=== PATIENT | female | born 1945 | race Caucasian/White ===

== ENCOUNTER 2018-09-23 15:45 | Inpatient (IN) | payer MEDICARE, OTHER ==
[2018-09-23 16:14] LABS: #Basophils 0.1 thou/uL (0.0-0.2); #Eosinphils 0.2 thou/uL (0.0-0.7); #Lymphocytes 2.8 thou/uL (1.20-3.40); #Monocytes 0.8 thou/uL (0.11-0.59); #Neutrophils 5.6 thou/uL (1.40-6.50); %Basophils 1.3 % (0.0-1.0); %Eosinophils 1.6 % (0.0-10.0); %Monocytes 8.3 % (0.0-10.0); %Neutrophils 58.8 % (42.0-75.0); Hemoglobin 15.1 g/dL (12.0-16.0); Mean Corpuscular HGB CONC 32.9 g/dL (32.0-36.0); Mean Corpuscular Hemoglobin 30.5 pg (27.0-31.0); Mean Corpuscular Volume 92.7 fL (78.0-98.0); Mean Platelet Volume 6.5 fL (7.4-10.4); Platelet Count 329 thou/uL (130-400); RBC Distribution Width 12.7 % (11.5-14.5); Red Blood Cell (RBC) Count 4.95 mill/uL (4.20-5.40); White Blood Cell (WBC) Count 9.5 thou/uL (4.8-10.8)
[2018-09-23 16:29] LABS: ALT (SGPT) 25 U/L (8-55); AST (SGOT) 26 U/L (5-34); Albumin 4.8 g/dL (3.4-4.8); Alkaline Phosphatase 66 U/L (40-150); Anion Gap 18 mmol/L (10-20); BUN (Urea Nitrogen) 23 mg/dL (9.8-20.1); Bilirubin, Total 0.3 mg/dL (0.2-1.2); CK (CPK) 56 U/L (29-168); Calc. Creatinine Clearance 0 mL/min (70-130); Calcium 10.5 mg/dL (7.8-10.44); Carbon Dioxide 18 mmol/L (23-31); Chloride 108 mmol/L (98-107); Estimated GFR-MDRD 30; Glucose 86 mg/dL (80-115); Lipase 64 U/L (8-78); Potassium 4.4 mmol/L (3.5-5.1); Protein, Total 7.8 g/dL (6.0-8.3); Sodium 140 mmol/L (136-145)
[2018-09-23] MEDS ORDERED: Iopamidol 370 76% 100 ML VIAL ONE (16:59)
--- NOTE | 2018-09-23 17:19 | CT ---
CT abdomen and pelvis: 09/23/2018 COMPARISON: None HISTORY: Right lower quadrant pain and diarrhea TECHNIQUE: Axial CT imaging at 5 mm intervals from lung bases through pubic symphysis with IV contras t. Coronal reformatted imaging obtained. FINDINGS: Evaluation of the bowel is limited without oral contrast media. Questionable tiny nodule no saran on axial image 1 within right lower lobe measuring 7 mm and within lingula measuring 7 mm. Follow-up contrast enhanced CT examination of the chest advised. No free intraperitoneal air. There is mild nonspecific intrahepatic biliary dilatation bilaterally. Gallbladder wall is mildly pro minent, significance/etiology uncertain. No focal liver lesion is seen. Splenic granulomata are present. Pancreas and bilateral adrenal glands are unremarkable. There are small hypodensities within both kidneys, too small to characterize. There is a small mid po le left renal cyst. There is extensive diverticulosis of the descending colon and sigmoid colon with no evidence for dive rticulitis. The appendix is unremarkable. There are decompressed distal small bowel loops. Proximal to this are multiple dilated fluid-filled l oops of small bowel within the lower abdomen and pelvis measuring up to 3 cm in transverse dimension. Findings are consistent with small bowel obstruction. There is extensive atherosclerotic calcification of the abdominal aorta and its branches. There is a low-density lesion in the left hemipelvis on axial image 65 measuring 2.9 cm, with Hounsfi eld units suggesting a cyst within the left ovary/adnexa. There is a mass within the pelvic cul-de-sac measuring 7.6 cm in greatest dimension, abutting the posterior aspect of the uterus. Its H ounsfield units are 44, which may represent a solid pelvic mass or a complex cystic pelvic mass lesion. This could represent exophytic fibroid or ovarian/adnexal mass. Adnexal/ovarian mass favored, suspicious for possible malignancy. No retroperitoneal or pelvic lymphadenopathy is seen. The osseous structures of the abdomen and pelvis demonstrate no worrisome lytic or blastic bone lesio ns. There is degenerative change involving the lower lumbar spine and bilateral hips. IMPRESSION: Evidence of small bowel obstruction Tiny bibasilar pulmonary nodules for which follow-up CT advised. Mild intrahepatic biliary dilatation of uncertain etiology. Correlation with LFTs advised. Low-density lesions within the pelvis, including a 7.6 cm lesion within the right aspect of the pelvi c cul-de-sac suspicious for ovarian/adnexal malignancy. TR[employer] UNION OFFICIAL consultation suggested. Diverticulosis without evidence for diverticulitis. CODE T
[2018-09-23 18:26] LABS: Bilirubin Negative (Negative); Blood, Urine Negative (Negative); Clarity Clear (Clear); Glucose, Urine (Dipstick) Negative (Negative); Leukocyte Small (Negative); Nitrite Negative (Negative); Protein, Urine (Dipstick) Negative (Neg-Trace); Urobilinogen 0.2 mg/dL (0.2-1.0)
[2018-09-23 18:31] LABS: RBC/HPF None Seen HPF (0-3)
[2018-09-23 18:32] LABS: Bacteria/HPF 1+ HPF (None Seen)
[2018-09-23 19:45] LABS: Lactic Acid 1.3 mmol/L (0.5-2.2)
[2018-09-23] MEDS ORDERED: Ondansetron ODT 4 MG TAB SL PRN (20:45)
[2018-09-23] MEDS ORDERED: Ondansetron PF 4 MG/2 ML Vial IVP PRN (20:45)
[2018-09-23] MEDS ORDERED: Sodium Chloride 0.9% 1,000 ML IV SCH (20:45)
[2018-09-23] MEDS ORDERED: HumaLOG 300 UNITS/3 ML VIAL SC PRN ×2 (20:59→21:11)
[2018-09-23 21:03] VITALS: BMI 24.7
[2018-09-23] MEDS ORDERED: Dextrose 50% Abboject 50 ML SYRINGE IVP PRN (21:11)
[2018-09-23] MEDS ORDERED: Dextrose 5% in Water 1,000 ML IV PRN (21:11)
[2018-09-24] MEDS ORDERED: Sodium Chloride 0.9% 1,000 ML IV SCH (01:00)
--- NOTE | 2018-09-24 01:08 | HP ---
PRIMARY CARE PHYSICIAN: Bj Herzog MD. HISTORY OF PRESENT ILLNESS: This is a 72-year-old female patient, with a history of type 2 diabetes, hypertension, hyperlipidemia, hypothyroidism, and anxiety, presented to the emergency department with complaints of lightheadedness and low blood pressure and almost passing out. The patient states that she has had several weeks of on and off diarrhea which could be severe at times. She was uncertain of the etiology, but it continued to go on and off and some days was good and some days was very bad, the last episode of diarrhea was 2 days ago. This afternoon she felt like she was in her usual state of health when she developed lightheadedness and dizziness. She stated that she almost passed out when she would stand up. Her partner brought her to the emergency department due to her symptoms and low blood pressure. In the emergency department, she was found to be significantly hypotensive with a blood pressure initially 88/44. In the Emergency Department, they resuscitated her with IV fluids 3 L given in bolus nature. In the emergency department, her blood pressure came up over 100 systolic. Her lightheadedness improved at that time and she was feeling much better. Upon evaluation, due to her abdominal pain and diarrhea. CAT scan was done which revealed abnormalities including a pelvic mass, diverticulosis, and abnormal gallbladder as well as dilated small bowel loops consistent with a small-bowel obstruction. She is now being admitted for further evaluation and treatment. PAST MEDICAL HISTORY: Hypertension, hyperlipidemia, type 2 diabetes, hypothyroidism, and anxiety. She reports a history of ovarian cyst in the past, but was told that it was not to worry about and she does not recall any further workup on that ovarian mass in the past. 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 MEDICATIONS: Include; 1. Crestor 40 mg daily. 2. Losartan 100 mg daily. 3. Metformin 850 mg b.i.d. 4. Nifedipine 90 mg daily. 5. Synthroid 125 mcg daily. 6. Fluoxetine 40 mg daily. ALLERGIES: NO KNOWN DRUG ALLERGIES. PSYCHIATRIC HISTORY: Positive for anxiety. SOCIAL HISTORY: She is single. She has a male partner at home, but not . Former smoker, quit over 25 years ago. Positive for regular alcohol use, wine and martinis. No history of alcoholism. FAMILY HISTORY: Both parents with heart disease. Brother with history of colon cancer. She reports a normal colonoscopy on her last one. REVIEW OF SYSTEMS: CONSTITUTIONAL: As per the history of present illness, she denies any recent fevers, chills, or recent illness. HEENT: No headache, visual or hearing changes. No upper respiratory symptoms. CARDIAC: Denies chest pain, shortness of breath, or palpitations. PULMONARY: Denies cough or hemoptysis. GI: As per the history of present illness with diarrhea, minimal abdominal pain. No nausea and vomiting. States that her appetite has been good except for when she has bouts of diarrhea. No melena or hematochezia. : Denies dysuria or hematuria. 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 No history of abnormal Pap smears. NEUROLOGIC: No seizure or syncope, just her lightheadedness this afternoon. PHYSICAL EXAMINATION: VITAL SIGNS: Temperature 97.7, pulse of 62, respirations 20, blood pressure 103/48, pulse ox is 97% on room air. GENERAL: She is awake and alert. She is pleasant, in no acute distress. HEENT: Mucosa is moist. NECK: Supple. No JVD, adenopathy, or bruits. HEART: Regular rate and rhythm. LUNGS: Clear bilaterally. ABDOMEN: With positive bowel sounds. Rare high-pitched tinkling. Positive for right lower quadrant tenderness, but no rebound or guarding. No peritoneal signs. EXTREMITIES: No clubbing, cyanosis, or edema. 2+ peripheral pulses bilaterally. LABORATORY DATA: Sodium 140, potassium 4.4, chloride 108, CO2 of 18, BUN and creatinine are 23 and 1.67 with a GFR of 30. Serum glucose of 86, lactic acid was initially 2.5 and then repeat was 1.3, calcium of 10.5. Liver enzymes are normal. Alkaline phosphatase normal at 66. Troponin was negative. BNP was normal at 18. Lipase 64. White blood cell count 9500, hemoglobin and hematocrit 15.1 and 45.9, and platelets of 329. Urinalysis with positive for epithelial cells. IMAGING STUDIES: Abdominal and pelvic CT revealed evidence of small bowel obstruction, small bibasilar pulmonary nodules, mild intrahepatic biliary dilatation, low-density lesions in the pelvis including a 7.6 cm lesion in the right aspect of the pelvic cul-de-sac, suspicious positive for diverticulosis. ASSESSMENT AND PLAN: This is a 72-year-old female patient, with multiple medical problems including type 2 diabetes, hypertension, hyperlipidemia, hypothyroidism, now with subacute diarrhea, evidence of bowel obstruction and 7 to 8 cm pelvic mass. Plan, we will continue IV fluid rehydration and hold her antihypertensive medications at this point. We will check right upper quadrant and pelvic ultrasound for further delineation of the abnormalities on her CAT scan. Consult Gynecology for evaluation and possible laparoscopy versus oophorectomy. 1. Diarrhea. We will check stool studies. Likely, she has had evidence of small bowel obstruction over the past few weeks. 2. Hypertension. Again, we will hold antihypertensive till her blood pressure returns to normal. Continue fluid resuscitation. Monitor her blood pressure. 3. Type 2 diabetes. We will hold her oral medications until small-bowel obstruction resolves and we will cover with insulin sliding scale. 4. Hypothyroidism. We will follow and restart her medications when able. Job ID: [id number]
[2018-09-24 05:19] LABS: #Eosinphils 0.2 thou/uL (0.0-0.7); #Lymphocytes 3.2 thou/uL (1.20-3.40); #Monocytes 0.7 thou/uL (0.11-0.59); #Neutrophils 4.6 thou/uL (1.40-6.50); %Basophils 0.4 % (0.0-1.0); %Eosinophils 2.2 % (0.0-10.0); %Lymphocytes 36.4 % (21.0-51.0); %Monocytes 7.8 % (0.0-10.0); %Neutrophils 53.2 % (42.0-75.0); Mean Corpuscular HGB CONC 32.9 g/dL (32.0-36.0); Mean Corpuscular Hemoglobin 31.5 pg (27.0-31.0); Mean Corpuscular Volume 95.7 fL (78.0-98.0); Mean Platelet Volume 7.2 fL (7.4-10.4); Platelet Count 249 thou/uL (130-400); RBC Distribution Width 12.2 % (11.5-14.5); White Blood Cell (WBC) Count 8.7 thou/uL (4.8-10.8)
[2018-09-24 05:36] LABS: ALT (SGPT) 16 U/L (8-55); AST (SGOT) 17 U/L (5-34); Albumin 3.5 g/dL (3.4-4.8); Alkaline Phosphatase 47 U/L (40-150); Anion Gap 10 mmol/L (10-20); BUN (Urea Nitrogen) 14 mg/dL (9.8-20.1); Bilirubin, Total 0.3 mg/dL (0.2-1.2); Calc. Creatinine Clearance 60 mL/min (70-130); Calcium 8.4 mg/dL (7.8-10.44); Carbon Dioxide 21 mmol/L (23-31); Chloride 114 mmol/L (98-107); Estimated GFR-MDRD 66; Glucose 78 mg/dL (80-115); Potassium 4.3 mmol/L (3.5-5.1); Protein, Total 5.5 g/dL (6.0-8.3); Sodium 141 mmol/L (136-145)
[2018-09-24] MEDS ORDERED: Levothyroxine Sodium 125 MCG TAB PO SCH (06:00)
--- NOTE | 2018-09-24 08:46 | ULT ---
Gallbladder ultrasound: Multiple grayscale images of right upper quadrant obtained according to protocol. INDICATION: Pain FINDINGS: Liver: Normal Gallbladder: Focus of increased echogenicity within the gallbladder lumen is present, which measures approximately 5 mm. This may relate to a polyp or alternatively a nonshadowing adherent stone. Gallbladder wall: Borderline size at 3 mm. Hannon's Sign: Negative Common bile duct is 6-7 mm, borderline in size for patient's age Ascites: None IMPRESSION: Probable gallbladder polyp, proximally 5 mm. Alternatively this could relate to an adherent nonshadow ing gallstone. Recommend 6 month follow-up ultrasound to confirm stability.
--- NOTE | 2018-09-24 08:56 | ULT ---
US Pelvic and transabdominal HISTORY: Pelvic pain COMPARISON: CT exam 09/23/2018 TECHNIQUE: Multiple grayscale and color Doppler images were obtained in a transabdominal and transvag inal pelvic ultrasound were attempted. Doppler color flow imaging was performed. FINDINGS: CERVIX: Not reliably visualized for comment UTERUS: Predominantly obscured on the provided views ENDOMETRIAL STRIPE: Not discerned No significant free fluid is present. RIGHT OVARY: Not visualized for comment LEFT OVARY:Not visualized for comment IMPRESSION: Markedly limited evaluation due to persistent areas of shadowing and patient inability to tolerate the exam. Please refer to the CT report 09/23/2018 as the imaging exam of pathologic documentation, as described abnormalities cannot be reliably demonstrated on this exam.
[2018-09-24] MEDS ORDERED: FLUoxetine HCl 20 MG CAP PO SCH (09:00)
[2018-09-24] MEDS ORDERED: Prevnar 13-Val Conj/PF 0.5 ML SYRINGE IM ONE (09:00)
--- NOTE | 2018-09-24 10:57 | DIS ---
DATE OF ADMISSION: 09/23/2018 DATE OF DISCHARGE: 09/24/2018 SUMMARY OF HOSPITAL COURSE: The patient was admitted by Dr. Catalino Neil on coverage for Dr. Bj Herzog on Monday, the . She had an episode of diarrhea and abdominal cramping and was noted to be dehydrated in the emergency room. She was resuscitated with 3 L of IV fluid. CT scan revealed a complex pelvic mass and possible small bowel obstruction. Ultrasound was not helpful in further evaluation. Dr. Gilles Mon was consulted in the a.m. on 09/24. Feeling thorne. 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 Also, exam revealed the patient does not have any signs or symptoms of a persistent small-bowel obstruction. She will be discharged home with follow up on 09/[address] Noelle Leger at [facility] in [place] arranged by Dr. Mon. Job ID: [id number]
--- NOTE | 2018-09-24 11:13 | CON ---
DATE OF CONSULTATION: 09/24/2018 TIME OF SERVICE: 10:15. CONSULTING PHYSICIAN: Dr. Gilles Mon. REASON FOR CONSULTATION: Complex adnexal mass, postmenopausal with possible SBO. HISTORY OF PRESENT ILLNESS: Emelina Palacios is a 72-year-old, G0, white female, who reports a history of increasing frequency and intensity of episodes of constipation with subsequent diarrhea after eating over the past several months. She denies increasing abdominal girth. She denies postmenopausal bleeding. On Monday, she had an episode that was quite significant and worse than her previous episodes and involved a lot of weakness. Upon presentation to the emergency room, a CT scan was performed, which had concerns for small bowel obstruction along with findings as to be noted later on. She was also found to be hypotensive and felt to be dehydrated. She was resuscitated with 3 L of IV fluids, which improved her symptoms significantly. Of note, the patient denies nausea or vomiting. Today, she feels much better. 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 The patient has a history of primary infertility and underwent laparoscopy, at one point in time, she was told she had an ovarian cyst and probable endometriosis, although final diagnosis was something different, she does not remember what. No family history of ovarian cancer. No history of cervical cancer. Unknown time from last Pap smear. She is not sexually active. PAST MEDICAL HISTORY: Significant for hypertension, hyperlipidemia, type 2 diabetes, hypothyroidism, anxiety. 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 MEDICATIONS: On admission include; 1. Crestor. 2. Losartan. 3. Metformin. 4. Nifedipine. 5. Synthroid. 6. Fluoxetine. ALLERGIES: DENIES. PSYCHIATRIC HISTORY: Anxiety. SOCIAL HISTORY: The patient is single. She has recently had an estrangement from her long-term marriage partner. She has a male partner that she is living with here in [place], but they are not . She is a former smoker, quit 25 years ago, and has regular alcohol use, but no alcoholism. FAMILY HISTORY: Significant for brother with colon cancer and history of a normal colonoscopy. REVIEW OF SYMPTOMS: Today, pertinent positives are a mild right lower quadrant pain. She denies nausea or vomiting and has not had diarrhea during her hospitalization. PHYSICAL EXAMINATION: : Limited. GENERAL: Reveals a white female in no acute distress. The patient is alert and oriented x3. VITAL SIGNS: Temperature is 98.0, pulse is 74, respirations 16, pulse ox 97%, blood pressure 126/66. The patient has had 1200 mL of IV intake. She has been started on clear liquid diet and is tolerating well. She has voided, but not had a bowel movement during her hospitalization. ABDOMEN: Soft and nontender without distention. She has no rebound or guarding except deep palpation in the right lower quadrant, no mass is palpated. She has bowel sounds in all four quadrants. PELVIC: Deferred. EXTREMITIES: No clubbing, cyanosis, or edema. LABORATORY DATA: Most recent hematocrit is 36% with normal white count, normal platelet count. Sodium is normal at 141, potassium at 4.3, creatinine is 0.85. LFTs are within normal limits. Urinalysis on admission was unremarkable. Ultrasound was performed and she did not tolerate vaginal technique of the pelvis, the abdominal exam is very limited. CT scan on 09/23 revealed diverticulosis with two adnexal masses, one in the left hemipelvis measuring 3 cm, consistent with a cyst, and a solid or complex cystic pelvic mass measuring 7.6 cm in the posterior right pelvis. No significant free fluid was noted. No omental caking was noted. The patient's small bowel had some multiple dilated loops up to 3 cm, which was read as consistent with small-bowel obstruction. IMPRESSION: A 72-year-old, G0 with complex adnexal mass and symptomatology, worrisome for gynecologic malignancy. Despite the CT findings, the patient's physical exam and history are not consistent with a small bowel obstruction at this time. It is possible the patient has occasional intermittent small-bowel obstruction that relieves. PLAN: As this patient is currently stable, she seems okay for discharge at this time. I have discussed the patient's case with Dr. Noelle Leger at [facility] in the [place], [place]. Dr. Leger's office has been provided the patient's information. We will contact her today for followup appointment at Dr. Leger's office on Monday, 09/25 in the a.m. The patient is instructed to go home, remain on a liquid diet, and present to Dr. Leger's office with the possibility of readmission and surgical management to be addressed by Dr. Leger. Job ID: [id number]
--- NOTE | 2018-09-24 11:24 | PRG ---
DATE OF SERVICE: 09/24/2018 SUBJECTIVE: The patient is 72-year-old female, who presented with diarrhea, lightheadedness, was found to have a CT scan abnormal with right lower quadrant mass of unknown etiology. I saw the patient this morning. She was resting comfortably. She states she has had no vomiting and is having no further pain. I have informed her of the findings and the need for further treatment with possible surgery. I have also notified her this certainly could represent some type of malignancy and only Surgery will tell. OBJECTIVE: VITAL SIGNS: Temperature 97.8, BP 106/66. LUNGS: Clear. HEART: Reveals a regular rate and rhythm. No murmurs, gallops, or rubs. ABDOMEN: Soft and nontender. Bowel sounds are present and active. IMPRESSION: Right lower quadrant pelvic mass of unknown etiology. 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 Job ID: [id number]
[2018-09-24 11:54] VITALS: BP 131/66; TEMP 97.5
== END 2018-09-24 12:51 | disposition home or self-care (01) | DRG 756 ==
LOC: SCSER 15:45 → SURG B 19:51
PROVIDERS: ADMIT Family Medicine; ATTEND Family Medicine
DX: C76.3 Malignant neoplasm of pelvis (principal); I25.10 Atherosclerotic heart disease of native coronary artery without angina pectoris; E11.9 Type 2 diabetes mellitus without complications; I95.9 Hypotension, unspecified; E03.9 Hypothyroidism, unspecified; E78.00 Pure hypercholesterolemia, unspecified; I10 Essential (primary) hypertension; E86.0 Dehydration; F41.9 Anxiety disorder, unspecified; K57.90 Diverticulosis of intestine, part unspecified, without perforation or abscess without bleeding; Z79.84 Long term (current) use of oral hypoglycemic drugs; Z79.899 Other long term (current) drug therapy; Z87.891 Personal history of nicotine dependence
CPT/HCPCS: 36415; 36416; 74177; 76705; 76856; 80053; 81003; 81015; 82550; 83605; 83690; 83880; 84484; 85025; 96360; 96361; Q9967

== ENCOUNTER 2019-01-11 10:56 | Outpatient (CLI) | payer MEDICARE, OTHER ==
--- NOTE | 2019-01-11 13:30 | BD ---
DEXA BONE DENSITY: HISTORY: Screening for osteoporosis. FINDINGS: Lumbar Spine: BMD (g/cm2) L1 1.114 T-Score: 1.1 3.0 L2 1.182 T-Score: 1.4 3.5 L3 1.289 T-Score: 1.9 4.1 L4 1.257 T-Score: 1.8 4.1 L1-L4 1.219 T-Score: 1.6 3.7 Femoral Neck: 0.893 T-Score: 0.4 2.2 Total Femur: 1.125 T-Score: 1.5 3.1 Impression: Lumbar Spine: WHO classification is normal; fracture risk is not increased. Femoral Neck: WHO classification is normal. FRAX not reported because all T-scores are at or above -1.0. POS: [facility]
== END 2019-01-11 10:57 | disposition home or self-care (01) ==
LOC: BICMAMMO 10:56
PROVIDERS: ATTEND Obstetrics & Gynecology
DX: Z13.820 Encounter for screening for osteoporosis (principal)
CPT/HCPCS: 77080

== ENCOUNTER 2019-01-16 14:39 | Outpatient (CLI) | payer MEDICARE, OTHER ==
--- NOTE | 2019-01-16 15:53 | CT ---
CT OF ABDOMEN AND PELVIS PERFORMED WITH INTRAVENOUS CONTRAST ENHANCEMENT: 01/16/19 HISTORY: Patient had surgery in September of 2018 for a benign fibromatous mass in the uterus which was removed. Th e patient complains of pain in this region. COMPARISON: The CT examination that was performed 09/23/18. The lung bases are clear of any infiltrative process. The vague area of nodularity seen in the right lower lobe is not seen on today's exam. The lingular nodular density is not seen, but this is probabl y because it is not included on this exam due to its higher position. The liver, spleen, and pancreas regions are unremarkable. The gallbladder is somewhat contracted. Thi s is of similar appearance to the previous exam. It may be related to nonfasting state. The right and left adrenal glands are normal. There are hypodensities involving both kidneys which ar e probably related to cysts; however, one density in the mid pole region of the left kidney has a tatyana tral more cystic appearing area. This area has CT Hounsfield unit numbers of 13 which would be compat ible with a cyst. It measures approximately 1 cm in size; however, directly adjacent to this is an ar ea of Hounsfield units of 32 which are not definitely cystic. It is similar in size to the prior exam ination. Further evaluation with CT using a renal mass protocol would be recommended. Other hypodens ities are too small to characterize but statistically most likely cysts. There is a punctate nonobstr ucting left renal calculus present. There is no significant periaortic or mesenteric adenopathy. CT OF PELVIS PERFORMED WITH CONTRAST ENHANCEMENT: Sigmoid diverticulosis is noted. The uterus has been removed. Cannot definitely identify any adnexal structures. No fluid collection, pelvic lymphadenopathy or mass. IMPRESSION: 1. Incompletely characterized left renal lesion as described above. CT using renal mass protocol is recommended for assessment. 2. Contracted appearing gallbladder. 3. Punctate nonobstructing left renal calculus. 4. Colonic diverticulosis. 5. Post hysterectomy change. POS: [facility]
== END 2019-01-16 14:40 | disposition home or self-care (01) ==
LOC: SCSCT 14:39
PROVIDERS: ATTEND Obstetrics & Gynecology
DX: R10.2 Pelvic and perineal pain (principal); N28.9 Disorder of kidney and ureter, unspecified; N20.0 Calculus of kidney; K57.30 Diverticulosis of large intestine without perforation or abscess without bleeding; Z90.710 Acquired absence of both cervix and uterus
CPT/HCPCS: 74177; 82565

== ENCOUNTER 2019-06-28 09:19 | Outpatient (CLI) | payer MEDICARE, OTHER ==
[~2019-06-28 09:19] MED LIST: Iopamidol-370 76% 500 ML 1 ML ONE
--- NOTE | 2019-06-28 11:05 | CT ---
CT Abdomen Pelvis W WO con History: Renal mass Comparison: CT abdomen and pelvis December 2018 Findings: Similar appearance 6 mm nodule within the lingula. Small ground glass opacity posterior seg ment right lower lobe. Multiple calcified granulomas of the spleen. There is a left interpolar renal calculus measuring 2 x 4 mm. This is similar. Moderate vascular calcifications of the aorta. No acute osseous abnormality. High-grade facet arthrop athy at L4/L5 bilaterally with 1 mm anterolisthesis. No suspicious osteolytic or osteoblastic lesions. There is a 1 cm mass with indeterminate enhancement interpolar left kidney chest superior and superfi cial to a simple cyst. This has not significantly grown from September 2018. This appears separate from the adjacent interpolar cystic structure. No other abnormal focal renal enhancement. No hydroureteronephrosis. The celiac trunk and superior mesenteric arteries are patent. Moderate diverticular disease sigmoid c olon without active current inflammation. The appendix is visualized and is normal. No retroperitoneal periaortic adenopathy. Impression: Size unchanged mass interpolar left kidney measuring approximately 1 cm just superior and superficial to an interpolar cyst. This is similar dating back to September 2018 and enhancement is indeterminate. A follow-up renal protocol MRI in 6 months-1 year recommended.
== END 2019-06-28 09:20 | disposition home or self-care (01) ==
LOC: BICCT 09:19
PROVIDERS: ATTEND Family Medicine
DX: N28.89 Other specified disorders of kidney and ureter (principal); N28.1 Cyst of kidney, acquired
CPT/HCPCS: 74170; 74178; Q9967

== ENCOUNTER 2020-10-28 10:43 | Outpatient (CLI) | payer MEDICARE, OTHER | END 2020-10-28 10:44 | disposition home or self-care (01) | LOC: BICMAMMO 10:43 | PROVIDERS: ATTEND Family Medicine | DX: Z12.31 Encounter for screening mammogram for malignant neoplasm of breast (principal) | CPT/HCPCS: 77063; 77067 ==

== ENCOUNTER 2021-11-10 12:58 | Outpatient (CLI) | payer MEDICARE | END 2021-11-10 12:59 | disposition home or self-care (01) | LOC: BICMAMMO 12:58 | PROVIDERS: ATTEND Family Medicine | DX: Z12.31 Encounter for screening mammogram for malignant neoplasm of breast (principal) | CPT/HCPCS: 77063; 77067 ==

== ENCOUNTER 2022-06-07 13:44 | Outpatient (CLI) | payer MEDICARE | END 2022-06-07 13:45 | disposition home or self-care (01) | LOC: BICMAMMO 13:44 | PROVIDERS: ATTEND Family Medicine | DX: Z13.820 Encounter for screening for osteoporosis (principal); E28.39 Other primary ovarian failure; M85.851 Other specified disorders of bone density and structure, right thigh; Z78.0 Asymptomatic menopausal state | CPT/HCPCS: 77080 ==

== ENCOUNTER 2023-12-12 10:56 | Outpatient (CLI) | payer MEDICARE, OTHER | END 2023-12-12 10:57 | disposition home or self-care (01) | LOC: BICMAMMO 10:56 | PROVIDERS: ATTEND Family Medicine | DX: Z12.31 Encounter for screening mammogram for malignant neoplasm of breast (principal) | CPT/HCPCS: 77063; 77067 ==

== ENCOUNTER 2024-02-07 08:14 | Outpatient (CLI) | payer MEDICARE, OTHER | END 2024-02-07 08:15 | disposition home or self-care (01) | LOC: ULT 08:14 | DX: M79.605 Pain in left leg (principal) ==

== ENCOUNTER → 2024-04-11 | Emergency (ER) | payer MEDICARE, OTHER ==
[~2024-04-11] MED LIST changes: -Iopamidol-370 76% 500 ML 1 ML ONE; +Nitrofurantoin Monohyd/M-Cryst 100 MG CAP ONE
[2024-04-11 18:28] LABS: Bilirubin Unable to Interpret (Negative); Blood, Urine Unable to Interpret (Negative); Clarity Hazy (Clear); Glucose, Urine (Dipstick) Unable to Interpret mg/dL (Negative); Ketone, Urine Unable to Interpret mg/dL (Negative); Leukocyte Unable to Interpret Leu/uL (Negative); Nitrite Unable to Interpret (Negative); Protein, Urine (Dipstick) Unable to Interpret mg/dL (Neg-Trace); Specific Gravity, Urine 1.008 (1.002-1.036); Urobilinogen UNABLE TO INTERPRET mg/dL (Less than 2); pH, Urine 5.7 (5.0-9.0)
[2024-04-11 18:29] LABS: CAUTI Indications for Culture Pelvic or flank pain; RBC/HPF Greater than 50 HPF (0-3)
[2024-04-11 18:30] LABS: Bacteria/HPF Rare-Few HPF (None Seen); Transitional Epithelial 0-3 HPF (None Seen)
[2024-04-11 18:31] LABS: Urine Culture Reflex No No
== END ==
LOC: ERS 17:27
DX: R31.9 Hematuria, unspecified (principal); E11.9 Type 2 diabetes mellitus without complications; I10 Essential (primary) hypertension; I25.10 Atherosclerotic heart disease of native coronary artery without angina pectoris; E78.5 Hyperlipidemia, unspecified; F17.210 Nicotine dependence, cigarettes, uncomplicated; Z55.0 Illiteracy and low-level literacy
CPT/HCPCS: 81001; 99283

== ENCOUNTER 2024-05-06 16:29 | Outpatient (CLI) | payer MEDICARE, OTHER | END 2024-05-06 16:30 | disposition home or self-care (01) | LOC: CT 16:29 | DX: R31.9 Hematuria, unspecified (principal); R91.8 Other nonspecific abnormal finding of lung field; N28.89 Other specified disorders of kidney and ureter; N28.81 Hypertrophy of kidney; N28.1 Cyst of kidney, acquired; N20.0 Calculus of kidney | CPT/HCPCS: 36415; 74176; 82565 ==

== ENCOUNTER 2024-05-07 14:56 | Outpatient (CLI) | payer MEDICARE, OTHER | END 2024-05-07 14:57 | disposition home or self-care (01) | LOC: RAD 14:56 | DX: R05.1 Acute cough (principal); J84.9 Interstitial pulmonary disease, unspecified; R30.0 Dysuria | CPT/HCPCS: 71046; 87086 ==

== ENCOUNTER 2024-05-09 14:52 | Outpatient (CLI) | payer MEDICARE, OTHER | END 2024-05-09 14:53 | disposition home or self-care (01) | LOC: BICCT 14:52 | DX: R91.1 Solitary pulmonary nodule (principal); J98.11 Atelectasis; Z87.09 Personal history of other diseases of the respiratory system | CPT/HCPCS: 71250 ==

== ENCOUNTER 2024-05-20 10:42 | Outpatient (CLI) | payer MEDICARE, OTHER | END 2024-05-20 10:43 | disposition home or self-care (01) | LOC: MRI 10:42 | DX: N28.89 Other specified disorders of kidney and ureter (principal); N28.1 Cyst of kidney, acquired; K76.9 Liver disease, unspecified | CPT/HCPCS: 74183 ==

== ENCOUNTER 2024-12-30 13:02 | Outpatient (CLI) | payer MEDICARE, OTHER | END 2024-12-30 13:03 | disposition home or self-care (01) | LOC: CT 13:02 | PROVIDERS: ATTEND Student in an Organized Health Care Education/Training Program | DX: R91.8 Other nonspecific abnormal finding of lung field (principal) | CPT/HCPCS: 71250 ==

== ENCOUNTER 2024-12-31 09:08 | Outpatient (CLI) | payer MEDICARE, OTHER | END 2024-12-31 09:09 | disposition home or self-care (01) | LOC: BICMAMMO 09:08 | PROVIDERS: ATTEND Emergency Medicine | DX: Z12.31 Encounter for screening mammogram for malignant neoplasm of breast (principal) | CPT/HCPCS: 77063; 77067 ==